=== PATIENT | male | born 1955 | race Caucasian/White ===

== ENCOUNTER 2017-12-02 12:37 | Inpatient (IN) | payer BC ==
[~2017-12-02] VITALS: Ht 162.6 cm; Wt 68.6 kg
--- NOTE | ~2017-12-02 | CN ---
PATIENT NAME:JANETTE MENDEZ MEDICAL RECORD: [id number] : 59 LOCATION:. D.2131 ADMIT DATE: 12/04/17 ACCOUNT: [id number] CONSULTING PHYSICIAN: LUPILLO CANTU MD REFERRING PHYSICIAN: NETTIE LUCIO MD DATE OF CONSULTATION: 12/03/2017 CARDIOLOGY CONSULTATION DIAGNOSES: 1. Paroxysmal supraventricular tachycardia. 2. Chronic obstructive pulmonary disease. 3. Bronchitis. HISTORY OF PRESENT ILLNESS: This is a gentleman who presents with pulmonary symptomatology. In [place], he was told that his heart would go out of rhythm in an SVT with heart rates in the 140-160 range. He did this while he was in the Emergency Room as well as while he was in his physician's office there in [place]. He has not had any of this since he has been here. He has had episodes of sinus tachycardia, frequent PACs. He does not have any chest pain or chest discomfort. His EKG is with no significant ST-T abnormalities. OVERALL IMPRESSION: Supraventricular tachycardia associated with lung disease. Most likely this will respond to low dose beta blockade and that should not worsen his COPD. We will start him on Toprol 50 mg daily. Hopefully, this will control the heart rhythm and no further episodes of supraventricular tachycardia. He did have an echocardiogram at [facility]. We will try to locate the results of that. TRANSINT:[id number] Voice Confirmation ID: [id number] DOCUMENT ID: [id number] LUPILLO CANTU MD at 1630 CC: [id number] DICTATION DATE: 12/03/17 1119 UPPER LINING CEMENTER: 12/03/17 1130 ADM IN [facility] [address] [place] [address]
[2017-12-02 15:31] LABS: BASOPHILS 0 % (0-2); EOSINOPHILS 0 % (0-7); HEMOGLOBIN 16.4 g/dL (13.5-17.5); IMMATURE GRANULOCYTES 0.3 % (0-5); LYMPHOCYTES 14.8 % (15-50); MCH 32.4 pg (26.0-34.0); MCHC 34.9 g/dL (31.0-37.0); MCV 92.9 fL (80.0-100.0); MONOCYTES 2.5 % (2-11); NEUTROPHILS 82.4 % (40-80); PLATELET COUNT 255 10x3/uL (130-400); RBC 5.06 10x6/uL (4.20-6.10); RDW 12.6 % (11.5-14.5)
[2017-12-02 15:42] VITALS: BP 124/65
[2017-12-02 15:45] VITALS: BP 124/65; BMI 26.9
[2017-12-02] MEDS ORDERED: PROAIR HFA8.5 GM INH (15:58)
[2017-12-02] MEDS ORDERED: IPRAT-ALBUT 0.5-3 ML UPD (15:58)
[2017-12-02 16:03] LABS: ALBUMIN 3.8 g/dL (3.4-5.0); BILIRUBIN - TOTAL 0.4 mg/dL (0.2-1.3); CALCIUM 9.3 mg/dL (8.5-10.1); CARBON DIOXIDE 25.4 mmol/L (21.0-32.0); CREATININE - SERUM 1.4 mg/dL (0.6-1.3); POTASSIUM - SERUM 4.4 mmol/L (3.5-5.1); PROTEIN - SERUM 7.2 g/dL (6.4-8.2); THYROID STIMULATING HORMONE 0.5 uIU/mL (0.36-3.74)
[2017-12-02 16:14] LABS: APPEARANCE CLEAR (CLEAR); BILIRUBIN NEGATIVE (NEGATIVE); COLOR YELLOW (YELLOW); GLUCOSE 500 mg/dL (NEGATIVE); KETONE NEGATIVE (NEGATIVE); NITRITE NEGATIVE (NEGATIVE); PROTEIN NEGATIVE (NEGATIVE); UROBILINOGEN NORMAL (NORMAL)
[2017-12-02 16:15] LABS: WHITE CELLS - URINE RARE /hpf (0-5)
[2017-12-02 16:16] LABS: BACTERIA FEW /hpf (NONE SEEN); RED CELLS - URINE 25-50 /hpf (0-5)
[2017-12-02 19:00] VITALS: BP 115/65
[2017-12-03 03:51] VITALS: BP 107/58
[2017-12-03 07:51] VITALS: BP 138/89
[2017-12-03 11:21] VITALS: BP 136/77
[2017-12-03 15:07] VITALS: BP 132/78
[2017-12-03 20:00] VITALS: BP 113/68
[2017-12-04] VITALS: BP 128/54
[2017-12-04 04:00] VITALS: BP 116/54
[2017-12-04 09:14] VITALS: BP 107/48
[2017-12-04 11:40] VITALS: BP 118/55
[2017-12-04 15:36] VITALS: BP 106/56
[2017-12-04 20:00] VITALS: BP 110/54
[2017-12-05] VITALS: BP 120/52
[2017-12-05 04:00] VITALS: BP 81/39
[2017-12-05 05:12] LABS: BASOPHILS 0 % (0-2); EOSINOPHILS 0 % (0-7); HEMATOCRIT 46.3 % (42.0-54.0); IMMATURE GRANULOCYTES 0.2 % (0-5); LYMPHOCYTES 13.5 % (15-50); MCH 32.1 pg (26.0-34.0); MCHC 34.6 g/dL (31.0-37.0); MEAN PLATELET VOLUME 10.6 fL (7.4-10.4); MONOCYTES 4.1 % (2-11); NEUTROPHILS 82.2 % (40-80); PLATELET COUNT 256 10x3/uL (130-400); RBC 4.98 10x6/uL (4.20-6.10); RDW 12.3 % (11.5-14.5); WBC 6.4 10x3/uL (4.8-10.8)
[2017-12-05 05:41] LABS: ANION GAP 10.1 mmol/L (8-16); CALCIUM 8.9 mg/dL (8.5-10.1); CARBON DIOXIDE 30.6 mmol/L (21.0-32.0); CHOL - HDL RATIO 4.5 ratio (2.3-4.9); CREATININE - SERUM 1.1 mg/dL (0.6-1.3); LDL-HDL RATIO 3.3 ratio (1.5-3.5); POTASSIUM - SERUM 4.7 mmol/L (3.5-5.1)
[2017-12-05 07:59] VITALS: BP 102/51
[2017-12-05 11:27] VITALS: BP 104/47
[2017-12-05 12:33] VITALS: Ht 162.6 cm; Wt 68.6 kg
[2017-12-05 15:22] VITALS: BP 106/45
[2017-12-05 20:00] VITALS: BP 109/62
[2017-12-06] VITALS: BP 118/53
[2017-12-06 04:00] VITALS: BP 98/43
[2017-12-06 08:30] VITALS: BP 106/48
[2017-12-06 11:04] VITALS: BP 109/51
[2017-12-06] MEDS ORDERED: VIBRAMYCIN 100100 MG PO (11:19)
[2017-12-06] MEDS ORDERED: TOPROL XL50 MG PO (11:22)
[2017-12-06] MEDS ORDERED: SINGULAIR10 MG PO (11:22)
[2017-12-06] MEDS ORDERED: ZOCOR20 MG PO (11:22)
[2017-12-06] MEDS ORDERED: STERAPRED DS 1010 MG PO (11:24)
[2017-12-06] MEDS ORDERED: SYMBICORT 80-10.2 GM INH (11:26)
[2017-12-06] MEDS ORDERED: PROTONIX40 MG PO (11:27)
[2017-12-06] MEDS ORDERED: FLUTICASONE PRO16 GM NASAL (11:28)
[2017-12-06] MEDS ORDERED: XOPENEX 0.0.63 MG/3 UPD (11:29)
[2017-12-06 16:52] VITALS: BP 104/58
[2017-12-07 07:33] LABS: IMMUNOGLOBULIN A 192 mg/dL (90-386); IMMUNOGLOBULIN G 861 mg/dL (700-1600)
[2017-12-11 15:21] LABS: A. FUMIGATUS #1 ABS Negative (Negative); PNEUM - A PULLULANS ABS Negative (Negative); PNEUM - MICROPOLY FAENI ABS Negative (Negative); PNEUM - PIGEON SERUM ABS Negative (Negative); PNEUM - THERMOA VULGARIS #1 Negative (Negative); PNEUM - THERMOACT SACCHARII Negative (Negative)
[2017-12-13 03:15] LABS: IMMUNOGLOBULIN E 202 IU/mL (0-100)
== END 2017-12-06 18:26 | disposition home or self-care (01) | DRG 191 ==
LOC: D.M2 12:37 → OBSVTIME 14:56 → D.M2 14:56
PROVIDERS: Family Medicine; Internal Medicine Nephrology; Internal Medicine Pulmonary Disease
DX: J44.1 Chronic obstructive pulmonary disease with (acute) exacerbation (principal); I47.1 Supraventricular tachycardia; N17.9 Acute kidney failure, unspecified; E78.5 Hyperlipidemia, unspecified; R33.9 Retention of urine, unspecified; K21.9 Gastro-esophageal reflux disease without esophagitis; J32.9 Chronic sinusitis, unspecified; J30.9 Allergic rhinitis, unspecified